=== PATIENT | female | born 1980 | race African-American/Black ===

== ENCOUNTER 2019-09-11 06:20 | Emergency (ER) | payer OTHER ==
[~2019-09-11] VITALS: Ht 170.2 cm; Wt 104.3 kg
[2019-09-11 07:04] LABS: ABSOLUTE NEUTROPHILS 7.3 thou/uL (1.4-8.2); BASOPHILS 0.1 % (0.0-2.0); EOSINOPHILS 0.2 % (0.0-3.0); HEMATOCRIT 31.1 % (37.0-47.0); HEMOGLOBIN 10.9 gm/dL (12.0-15.0); LYMPHOCYTES 6.2 % (24.0-44.0); MCH 33.8 pg (26.0-34.0); MCHC 35.1 g/dL (28.0-37.0); MCV 96.3 fL (80.0-100.0); MONOCYTES 1.5 % (1.0-8.0); PLATELET COUNT 216 thou/uL (150-400); RBC 3.23 mil/uL (4.20-5.00); RDW 13.5 % (10.5-14.5); WBC 7.9 thou/uL (4.0-11.0)
[2019-09-11 07:07] LABS: CALCIUM 8.6 mg/dL (8.5-10.1); CREATININE 0.8 mg/dL (0.6-1.0); POTASSIUM 3.3 mmol/L (3.5-5.1)
[2019-09-11 07:13] LABS: ALBUMIN 2.9 g/dL (3.4-5.0); DIRECT BILIRUBIN 0.1 mg/dL (<0.1-0.2); TOTAL BILIRUBIN 0.4 mg/dL (0.2-1.0); TOTAL PROTEIN 7.1 g/dL (6.4-8.2)
[2019-09-11] MEDS ORDERED: NOHOMEMEDICATIONS (07:32)
[2019-09-11 09:21] VITALS: BP 116/58
== END 2019-09-11 09:21 | disposition home or self-care (01) ==
LOC: ER 06:20
PROVIDERS: Emergency Medicine
DX: O20.8 Other hemorrhage in early pregnancy (principal); R42 Dizziness and giddiness; Z88.8 Allergy status to other drugs, medicaments and biological substances; Z3A.14 14 weeks gestation of pregnancy